=== PATIENT | female | born 1985 | race African-American/Black ===

== ENCOUNTER 2021-10-03 15:48 | Emergency (ER) | payer MEDICAID ==
[~2021-10-03] VITALS: Ht 165.1 cm; Wt 63.0 kg
[~2021-10-03 15:48] MED LIST: no meds
[2021-10-03] MEDS ORDERED: IBUPROFEN 400MG TABLET PO ONE (18:30)
[2021-10-03] MEDS ORDERED: ACETAMINOPHEN 325MG TABLET PO ONE (19:00)
[2021-10-03 19:47] VITALS: BP 125/65
== END 2021-10-03 19:49 | disposition home or self-care (01) ==
LOC: ER 15:48
DX: R06.02 Shortness of breath (principal); R20.8 Other disturbances of skin sensation; M79.644 Pain in right finger(s); R07.89 Other chest pain; M54.9 Dorsalgia, unspecified; R51.9 Headache, unspecified; M79.18 Myalgia, other site
CPT/HCPCS: 81025; 93005; 99283